=== PATIENT | male | born 1965 | race Caucasian/White ===

== ENCOUNTER 2023-02-22 09:12 | Emergency (ER) | payer BC ==
[2023-02-22 09:58] VITALS: BP 131/76; PULSE 72; RESP 16; BMI 23.3
[2023-02-22 10:09] LABS: BASO % 0.8 % (0-2.0); EOS % 3.7 % (0-4.5); HEMATOCRIT 37.9 % (35.4-49); HEMOGLOBIN 12.8 GM/dL (11.7-16.9); LYMPH % 26.5 % (8-40); MCH 31.3 pg (25.7-33.7); MCHC 33.7 g/dl (32.0-35.9); MEAN CELL VOLUME 92.7 fl (80-96); MEAN PLT VOLUME 7.9 fl (7.5-11.1); PLATELET COUNT 416 10^3/uL (134-434); RBC 4.09 M/mm3 (4.00-5.60); RDW 14.7 % (11.9-15.9); WHITE BLOOD COUNT 6.5 K/mm3 (4.0-10.0)
[2023-02-22 10:36] LABS: CALCIUM 9.2 mg/dL (8.5-10.1)
[2023-02-22 10:37] LABS: ALBUMIN 3.6 g/dl (3.4-5.0); BLOOD UREA NITROGEN 18.9 mg/dL (7-18)
[2023-02-22 10:40] LABS: CREATININE 0.7 mg/dL (0.55-1.3)
[2023-02-22 10:42] LABS: BILIRUBIN,TOTAL 0.2 mg/dL (0.2-1); TOT PROT 7.5 g/dl (6.4-8.2)
[2023-02-22] MEDS ORDERED: diazePAM 5 MG TABLET PO ONE (10:51)
[2023-02-22] MEDS ORDERED: methaDONE HCL 10 MG TABLET ONE (10:53)
[2023-02-22] MEDS ORDERED: diazePAM 5 MG TABLET ONE (10:54)
== END 2023-02-22 12:26 | disposition home or self-care (01) ==
LOC: JER 09:12
DX: R55 Syncope and collapse (principal)
CPT/HCPCS: 36415; 70450-TC; 70486-TC; 72125-TC; 80053; 84484; 85025; 93005; 93010; 99285-25

== ENCOUNTER 2023-03-07 17:09 | Inpatient (IN) | payer BC ==
[2023-03-07 18:34] VITALS: BMI 22.6
[2023-03-07] MEDS ORDERED: guaiFENesin 600 MG TABLET.ER (FP) PO PRN (19:47)
[2023-03-07] MEDS ORDERED: BISMUTH SUBSALICYLATE 524 MG/30 ML PO PRN (19:47)
[2023-03-07] MEDS ORDERED: LOPERAMIDE HCL 2 MG CAPSULE PO PRN (19:47)
[2023-03-07] MEDS ORDERED: BENZONATATE 200 MG CAPSULE PO PRN (19:47)
[2023-03-07] MEDS ORDERED: NALOXONE HCL 0.4 MG/ML VIAL IM PRN (19:47)
[2023-03-07] MEDS ORDERED: NALOXONE HCL (KLOXXADO) 8 MG SPRAY NS PRN (19:47)
[2023-03-07] MEDS ORDERED: IBUPROFEN 400 MG TABLET (FP) PO PRN (19:47)
[2023-03-07] MEDS ORDERED: MAG HYDROX/AL HYDROX/SIMETH 30 ML UNIT-DOSE CUP PO PRN (19:47)
[2023-03-07] MEDS ORDERED: BENZOCAINE/MENTHOL (CHLORASEPTIC ) LOZENGE MM PRN (19:47)
[2023-03-07] MEDS ORDERED: ONDANSETRON *ODT* 4 MG TABLET SL PRN (19:47)
[2023-03-07] MEDS ORDERED: MAGNESIUM HYDROX 2400MG/30ML ORAL SUSPENSION 30 ML CUP PO PRN (19:47)
[2023-03-07] MEDS ORDERED: POLYETHYLENE GLYCOL (HEALTHYLAX) 3350 17 GM PACKET PO PRN (19:47)
[2023-03-07] MEDS: diazePAM 5 MG TABLET PO SCH (22:27)
[2023-03-07] MEDS: MELATONIN 5 MG TABLETS PO SCH (22:27)
[2023-03-07] MEDS: THIAMINE HCL 100 MG TABLET (FP) PO SCH (22:29)
[2023-03-08] MEDS: hydrOXYzine PAMOATE 25 MG CAPSULE (FP) PO PRN ×2 (00:19→07:14)
[2023-03-08] MEDS: ACETAMINOPHEN 325 MG TABLET (FP) PO PRN ×2 (03:38→17:06)
[2023-03-08] MEDS: NICOTINE POLACRILEX 2 MG GUM BUC PRN ×5 (04:00→19:30)
[2023-03-08] MEDS: diazePAM 5 MG TABLET PO SCH ×4 (04:01→22:20)
[2023-03-08 09:38] LABS: HEMATOCRIT 35.6 % (35.4-49); HEMOGLOBIN 11.7 GM/dL (11.7-16.9); MCH 30.7 pg (25.7-33.7); MCHC 32.8 g/dl (32.0-35.9); MEAN CELL VOLUME 93.4 fl (80-96); MEAN PLT VOLUME 8.8 fl (7.5-11.1); PLATELET COUNT 339 10^3/uL (134-434); RBC 3.81 M/mm3 (4.00-5.60); RDW 14.3 % (11.9-15.9); WHITE BLOOD COUNT 6.6 K/mm3 (4.0-10.0)
[2023-03-08 10:02] LABS: ALBUMIN 3.4 g/dl (3.4-5.0); BLOOD UREA NITROGEN 26.1 mg/dL (7-18)
[2023-03-08 10:05] LABS: CREATININE 0.6 mg/dL (0.55-1.3)
[2023-03-08 10:06] LABS: BILIRUBIN,TOTAL 0.2 mg/dL (0.2-1); TOT PROT 6.8 g/dl (6.4-8.2)
[2023-03-08] MEDS: NICOTINE 14 MG/24 HOURS TOPICAL PATCH TD SCH (10:24)
[2023-03-08] MEDS: PRENATAL VITAMINS W/ FOLIC ACID TABLET (FP) PO SCH (10:24)
[2023-03-08] MEDS: IBUPROFEN 600 MG TABLET (FP) PO PRN (14:21)
[2023-03-08] MEDS ORDERED: QUEtiapine FUMARATE 400 MG TABLET PO SCH (22:00)
[2023-03-08] MEDS: THIAMINE HCL 100 MG TABLET (FP) PO SCH (22:21)
[2023-03-08] MEDS: MELATONIN 5 MG TABLETS PO SCH (22:21)
[2023-03-09] MEDS: diazePAM 5 MG TABLET PO SCH ×2 (05:39→13:59)
[2023-03-09] MEDS: IBUPROFEN 600 MG TABLET (FP) PO PRN (07:40)
[2023-03-09] MEDS: NICOTINE POLACRILEX 2 MG GUM BUC PRN ×4 (07:42→14:33)
[2023-03-09] MEDS: PRENATAL VITAMINS W/ FOLIC ACID TABLET (FP) PO SCH (10:26)
[2023-03-09] MEDS: NICOTINE 14 MG/24 HOURS TOPICAL PATCH TD SCH (10:26)
[2023-03-09] MEDS: diazePAM 5 MG TABLET PO PRN (17:01)
[2023-03-09] MEDS: hydrOXYzine PAMOATE 25 MG CAPSULE (FP) PO PRN (18:44)
[2023-03-09] MEDS ORDERED: QUEtiapine FUMARATE 300 MG TABLET PO SCH (22:00)
[2023-03-10] MEDS: MELATONIN 5 MG TABLETS PO SCH (00:10)
[2023-03-10] MEDS: diazePAM 5 MG TABLET PO SCH (00:11)
[2023-03-10] MEDS: THIAMINE HCL 100 MG TABLET (FP) PO SCH (00:11)
[2023-03-10 02:52] VITALS: BP 115/72; PULSE 92; RESP 17; TEMP 97.6
[2023-03-10] MEDS: diazePAM 5 MG TABLET PO PRN (03:04)
[2023-03-10] MEDS ORDERED: diazePAM 5 MG TABLET PO SCH (06:00)
[2023-03-11] MEDS ORDERED: diazePAM 5 MG TABLET PO ONE (06:00)
== END 2023-03-10 07:26 | disposition home or self-care (01) | DRG 773 ==
LOC: YASAS 17:09 → Y6N 20:31 → UNDODISIN 03-10 00:31
PROVIDERS: ADMIT Allergy & Immunology; ATTEND Surgery
PROC: HZ2ZZZZ Detoxification Services for Substance Abuse Treatment (ICD-10-PCS; principal; 2023-03-07)
DX: F13.230 Sedative, hypnotic or anxiolytic dependence with withdrawal, uncomplicated (principal); F11.20 Opioid dependence, uncomplicated; F17.210 Nicotine dependence, cigarettes, uncomplicated; F19.282 Other psychoactive substance dependence with psychoactive substance-induced sleep disorder; F19.280 Other psychoactive substance dependence with psychoactive substance-induced anxiety disorder; F31.9 Bipolar disorder, unspecified; G40.909 Epilepsy, unspecified, not intractable, without status epilepticus; R45.851 Suicidal ideations
CPT/HCPCS: 36415; 80053; 85027; 86780; 87635; 87811

== ENCOUNTER 2023-03-30 10:18 | Inpatient (IN) | payer BC ==
[2023-03-30 11:19] VITALS: BMI 25.2
[2023-03-30] MEDS ORDERED: NALOXONE HCL 0.4 MG/ML VIAL IM PRN (11:51)
[2023-03-30] MEDS ORDERED: IBUPROFEN 400 MG TABLET (FP) PO PRN (11:51)
[2023-03-30] MEDS ORDERED: ACETAMINOPHEN 325 MG TABLET (FP) PO PRN (11:51)
[2023-03-30] MEDS ORDERED: NALOXONE HCL (KLOXXADO) 8 MG SPRAY NS PRN (11:51)
[2023-03-30] MEDS ORDERED: POLYETHYLENE GLYCOL (HEALTHYLAX) 3350 17 GM PACKET PO PRN (11:51)
[2023-03-30] MEDS ORDERED: MAG HYDROX/AL HYDROX/SIMETH 30 ML UNIT-DOSE CUP PO PRN (11:51)
[2023-03-30] MEDS ORDERED: BENZONATATE 200 MG CAPSULE PO PRN (11:51)
[2023-03-30] MEDS ORDERED: BISMUTH SUBSALICYLATE 262 MG/15 ML BTL PO PRN (11:51)
[2023-03-30] MEDS ORDERED: diazePAM 5 MG TABLET PO ONE (11:51)
[2023-03-30] MEDS ORDERED: cloNIDine HCL 0.1 MG TABLET PO PRN (11:51)
[2023-03-30] MEDS ORDERED: DICYCLOMINE HCL 10 MG CAPSULE PO PRN (11:51)
[2023-03-30] MEDS ORDERED: methaDONE HCL 10 MG TABLET (FOR DETOX USE ONLY) PO ONE (11:51)
[2023-03-30] MEDS ORDERED: BENZOCAINE/MENTHOL (CHLORASEPTIC ) LOZENGE MM PRN (11:51)
[2023-03-30] MEDS ORDERED: MAGNESIUM HYDROX 2400MG/30ML ORAL SUSPENSION 30 ML CUP PO PRN (11:51)
[2023-03-30] MEDS ORDERED: guaiFENesin 600 MG TABLET.ER (FP) PO PRN (11:51)
[2023-03-30] MEDS ORDERED: ONDANSETRON *ODT* 4 MG TABLET SL PRN (11:51)
[2023-03-30] MEDS ORDERED: NICOTINE 21 MG/24 HOURS TOPICAL PATCH ONE (12:35)
[2023-03-30] MEDS ORDERED: diazePAM 5 MG TABLET ONE (12:35)
[2023-03-30] MEDS ORDERED: PRENATAL VITAMINS W/ FOLIC ACID TABLET (FP) PO ONE (12:36)
[2023-03-30] MEDS ORDERED: methaDONE HCL 10 MG TABLET (FOR DETOX USE ONLY) ONE (12:36)
[2023-03-30] MEDS: PRENATAL VITAMINS W/ FOLIC ACID TABLET (FP) PO SCH (12:43)
[2023-03-30] MEDS: NICOTINE 21 MG/24 HOURS TOPICAL PATCH TD SCH (12:43)
[2023-03-30] MEDS: IBUPROFEN 600 MG TABLET (FP) PO PRN (16:35)
[2023-03-30] MEDS: diazePAM 5 MG TABLET PO SCH ×2 (17:15→22:49)
[2023-03-30] MEDS: hydrOXYzine PAMOATE 25 MG CAPSULE (FP) PO PRN (18:53)
[2023-03-30] MEDS ORDERED: MELATONIN 5 MG TABLETS PO SCH (22:00)
[2023-03-30] MEDS: THIAMINE HCL 100 MG TABLET (FP) PO SCH (22:49)
[2023-03-31] MEDS: diazePAM 5 MG TABLET PO SCH ×4 (05:14→22:14)
[2023-03-31] MEDS: PRENATAL VITAMINS W/ FOLIC ACID TABLET (FP) PO SCH (10:10)
[2023-03-31] MEDS: levETIRAcetam 500 MG TABLET (FP) PO SCH (10:10)
[2023-03-31] MEDS: NICOTINE 21 MG/24 HOURS TOPICAL PATCH TD SCH (10:14)
[2023-03-31 11:58] LABS: HEMATOCRIT 37.6 % (35.4-49); HEMOGLOBIN 12.7 GM/dL (11.7-16.9); MCH 30.9 pg (25.7-33.7); MCHC 33.8 g/dl (32.0-35.9); MEAN CELL VOLUME 91.2 fl (80-96); MEAN PLT VOLUME 8.8 fl (7.5-11.1); PLATELET COUNT 345 10^3/uL (134-434); RBC 4.12 M/mm3 (4.00-5.60); RDW 14.8 % (11.9-15.9)
[2023-03-31 12:07] LABS: POTASSIUM 3.9 mmol/L (3.5-5.1)
[2023-03-31 12:10] LABS: ALBUMIN 2.8 g/dl (3.4-5.0); BLOOD UREA NITROGEN 26.8 mg/dL (7-18); CALCIUM 8.3 mg/dL (8.5-10.1)
[2023-03-31 12:13] LABS: CREATININE 0.5 mg/dL (0.55-1.3)
[2023-03-31 12:14] LABS: BILIRUBIN,TOTAL 0.4 mg/dL (0.2-1)
[2023-03-31 12:15] LABS: TOT PROT 5.9 g/dl (6.4-8.2)
[2023-03-31] MEDS: hydrOXYzine PAMOATE 25 MG CAPSULE (FP) PO PRN (12:30)
[2023-03-31] MEDS: diazePAM 5 MG TABLET PO PRN (13:09)
[2023-03-31] MEDS: THIAMINE HCL 100 MG TABLET (FP) PO SCH (22:13)
[2023-03-31] MEDS: QUEtiapine FUMARATE 200 MG TABLET PO SCH (22:13)
[2023-04-01] MEDS: diazePAM 5 MG TABLET PO SCH ×3 (05:50→22:06)
[2023-04-01] MEDS: PRENATAL VITAMINS W/ FOLIC ACID TABLET (FP) PO SCH (09:59)
[2023-04-01] MEDS ORDERED: methaDONE HCL 10 MG TABLET (FOR DETOX USE ONLY) PO ONE (10:00)
[2023-04-01] MEDS: levETIRAcetam 500 MG TABLET (FP) PO SCH (10:00)
[2023-04-01] MEDS: NICOTINE 21 MG/24 HOURS TOPICAL PATCH TD SCH (10:02)
[2023-04-01] MEDS: hydrOXYzine PAMOATE 25 MG CAPSULE (FP) PO PRN (13:36)
[2023-04-01] MEDS: diazePAM 5 MG TABLET PO PRN (18:15)
[2023-04-01] MEDS: QUEtiapine FUMARATE 200 MG TABLET PO SCH (22:06)
[2023-04-01] MEDS: THIAMINE HCL 100 MG TABLET (FP) PO SCH (22:06)
[2023-04-02] MEDS: LOPERAMIDE HCL 2 MG CAPSULE PO PRN ×2 (04:07→10:06)
[2023-04-02] MEDS: diazePAM 5 MG TABLET PO SCH ×3 (05:39→18:48)
[2023-04-02] MEDS: PRENATAL VITAMINS W/ FOLIC ACID TABLET (FP) PO SCH (10:05)
[2023-04-02] MEDS: levETIRAcetam 500 MG TABLET (FP) PO SCH (10:06)
[2023-04-02] MEDS: NICOTINE 21 MG/24 HOURS TOPICAL PATCH TD SCH (10:08)
[2023-04-02] MEDS: diazePAM 5 MG TABLET PO PRN (10:43)
[2023-04-02] MEDS: IBUPROFEN 600 MG TABLET (FP) PO PRN ×2 (14:16→22:14)
[2023-04-02] MEDS: THIAMINE HCL 100 MG TABLET (FP) PO SCH (22:13)
[2023-04-02] MEDS: METHOCARBAMOL 500 MG TABLET PO PRN (22:14)
[2023-04-02] MEDS: hydrOXYzine PAMOATE 25 MG CAPSULE (FP) PO PRN (22:14)
[2023-04-02] MEDS: QUEtiapine FUMARATE 200 MG TABLET PO SCH (22:14)
[2023-04-03] MEDS ORDERED: diazePAM 5 MG TABLET PO ONE (06:00)
[2023-04-03] MEDS ORDERED: methaDONE HCL 10 MG TABLET (FOR DETOX USE ONLY) PO ONE (10:00)
[2023-04-03] MEDS: levETIRAcetam 500 MG TABLET (FP) PO SCH (10:26)
[2023-04-03] MEDS: PRENATAL VITAMINS W/ FOLIC ACID TABLET (FP) PO SCH (10:26)
[2023-04-03] MEDS: NICOTINE 21 MG/24 HOURS TOPICAL PATCH TD SCH (10:28)
[2023-04-03] MEDS: hydrOXYzine PAMOATE 25 MG CAPSULE (FP) PO PRN ×2 (10:29→22:02)
[2023-04-03] MEDS: METHOCARBAMOL 500 MG TABLET PO PRN ×2 (10:29→19:34)
[2023-04-03] MEDS: IBUPROFEN 600 MG TABLET (FP) PO PRN ×2 (15:23→22:02)
[2023-04-03] MEDS: THIAMINE HCL 100 MG TABLET (FP) PO SCH (22:03)
[2023-04-03] MEDS: QUEtiapine FUMARATE 200 MG TABLET PO SCH (22:03)
[2023-04-04] MEDS: IBUPROFEN 600 MG TABLET (FP) PO PRN (06:49)
[2023-04-04] MEDS: METHOCARBAMOL 500 MG TABLET PO PRN (06:49)
[2023-04-04 09:12] VITALS: BP 101/73; PULSE 78; RESP 18; TEMP 98.2
[2023-04-04] MEDS: PRENATAL VITAMINS W/ FOLIC ACID TABLET (FP) PO SCH (10:51)
[2023-04-04] MEDS: levETIRAcetam 500 MG TABLET (FP) PO SCH (10:51)
[2023-04-04] MEDS: NICOTINE 21 MG/24 HOURS TOPICAL PATCH TD SCH (10:53)
== END 2023-04-04 11:20 | disposition home or self-care (01) | DRG 773 ==
LOC: YASAS 10:18 → Y6N 12:15
PROVIDERS: ADMIT Allergy & Immunology; ATTEND Surgery
PROC: HZ2ZZZZ Detoxification Services for Substance Abuse Treatment (ICD-10-PCS; principal; 2023-03-30)
DX: F11.23 Opioid dependence with withdrawal (principal); F10.230 Alcohol dependence with withdrawal, uncomplicated; F13.230 Sedative, hypnotic or anxiolytic dependence with withdrawal, uncomplicated; F12.20 Cannabis dependence, uncomplicated; F17.210 Nicotine dependence, cigarettes, uncomplicated; F31.9 Bipolar disorder, unspecified; F19.280 Other psychoactive substance dependence with psychoactive substance-induced anxiety disorder; F19.282 Other psychoactive substance dependence with psychoactive substance-induced sleep disorder; G40.909 Epilepsy, unspecified, not intractable, without status epilepticus; S32.028A Other fracture of second lumbar vertebra, initial encounter for closed fracture; S32.038A Other fracture of third lumbar vertebra, initial encounter for closed fracture; Y04.2XXA Assault by strike against or bumped into by another person, initial encounter; Y92.238 Other place in hospital as the place of occurrence of the external cause
CPT/HCPCS: 36415; 80053; 80307; 85027; 86780; 87635

== ENCOUNTER 2023-04-02 14:59 | Emergency (ER) | payer BC ==
[2023-04-02 15:20] VITALS: BP 102/55; PULSE 84; RESP 18; TEMP 98; BMI 22.6
[2023-04-02] MEDS ORDERED: ACETAMINOPHEN 500 MG TABLET (FP) PO ONE (15:34)
[2023-04-02] MEDS ORDERED: ACETAMINOPHEN 500 MG TABLET (FP) ONE (15:35)
[2023-04-02] MEDS ORDERED: METHOCARBAMOL 500 MG TABLET PO ONE (16:10)
[2023-04-02] MEDS ORDERED: METHOCARBAMOL 500 MG TABLET ONE (16:20)
[2023-04-02] MEDS ORDERED: KETOROLAC TROMETHAMINE 30 MG/1 ML VIAL IM ONE (19:04)
[2023-04-02] MEDS ORDERED: KETOROLAC TROMETHAMINE 30 MG/1 ML VIAL ONE (19:07)
== END 2023-04-02 19:22 | disposition home or self-care (01) ==
LOC: JERFT 14:59
PROC: 3E0233Z Introduction of Anti-inflammatory into Muscle, Percutaneous Approach (ICD-10-PCS; principal; 2023-04-02)
DX: S32.009A Unspecified fracture of unspecified lumbar vertebra, initial encounter for closed fracture (principal); R10.9 Unspecified abdominal pain; M54.50 Low back pain, unspecified; W22.8XXA Striking against or struck by other objects, initial encounter; Y09 Assault by unspecified means
CPT/HCPCS: 74176-TC; 99284-25